=== PATIENT | male | born 1980 ===

== ENCOUNTER 2022-09-17 07:49 | Observation (INO) | payer OTHER, SELFPAY ==
[2022-09-17] VITALS (29 sets, daily range): BP systolic 102–128; BP diastolic 55–92; PULSE 74–87; RESP 12–18; TEMP 36.4–37.7; O2SAT 94–100; BMI 25.2
--- NOTE | ~2022-09-17 | CT_ITS ---
EXAMINATION: CT abdomen pelvis w con DATE: 09/17/2022 09:17 INDICATION: Right lower abdominal pain, emesis TECHNIQUE: Computed tomography (CT) of the abdomen and pelvis was performed with 100 CC Omnipaque 350 intravenous contrast. Automated exposure control and iterative reconstruction technique were employe d. Exam dose: 246.34 mGy-cm total exam DLP. COMPARISON: None. FINDINGS: The lung bases are clear. Normal heart size. No pericardial or pleural effusion. The liver, gallbladder, spleen, pancreas, bile ducts, pancreatic duct, and adrenal glands and kidneys are unremarkable. Normal caliber of the abdominal aorta. No intraperitoneal or retroperitoneal or pelvic mass lesion or adenopathy or ascites. There is appendiceal dilatation, measuring up to 12 mm diameter, with periappendiceal fat stranding, consistent with acute appendicitis. No abscess is identified. No bowel obstruction or intraperitoneal free air is detected. Included skeletal structures are unremarkable. IMPRESSION: Acute appendicitis Dr. Singh telephoned the report on 09/17/[id number] Krishnamurthy Reviewed, dictated and finalized at [facility]. Reviewed, dictated and finalized at [facility].
[2022-09-17] MEDS: ONDANSETRON INJ 4 MG/2 ML VIAL IV PUSH ×3 (08:26→16:18)
[2022-09-17] MEDS: HYDROmorphone HCL INJ (*CRX) 1 MG/ML SYR 0.5 MG IV PUSH ×2 (08:26→09:42)
[2022-09-17] MEDS: SODIUM CHLORIDE 0.9% IV 1,000 ML 999 ML IV CONT ×2 (08:26→09:42)
[2022-09-17 08:32] LABS: Basophils Percent Auto 0.2 % (0.2-1.2); Eosinophils Percent Auto 0.1 % (0-4.4); Hematocrit 40.2 % (42.0-52.0); Hemoglobin 13.8 g/dL (14.0-18.0); Immature Granulocyte Absolute 0.06 K/mm3 (0.00-0.031); Immature Granulocyte Percent A 0.4 % (0-0.5); Lymphocytes Absolute Auto 0.77 K/mm3 (0.9-3.2); Lymphocytes Percent Auto 4.6 % (18.3-44.2); Mean Corpuscular HGB Conc 34.3 g/dl (32-36); Mean Corpuscular Hemoglobin 29.4 pg (26-34); Mean Corpuscular Volume 85.5 fl (80-100); Mean Platelet Volume 10.3 fl (7.4-10.4); Monocytes Absolute Auto 0.5 K/mm3 (0.1-0.6); Neutrophils Absolute Auto 15.5 K/mm3 (1.3-6.7); Neutrophils Percent Auto 91.7 % (45.5-73.1); Platelet Count Result 236 k/mm3 (150-375); Red Cell Distribution Width 12.8 % (11.5-14.5); White Blood Count 16.9 K/mm3 (4.5-10.0)
[2022-09-17 08:54] LABS: Alanine Aminotransferase 19 U/L (6-50); Albumin Level 4.5 g/dL (3.5-5.1); Alkaline Phosphatase 88 U/L (38-126); Anion Gap 6 mmol/L (8-16); Aspartate Amino Transferase 23 U/L (17-59); Bilirubin,Total 0.8 mg/dL (0.2-1.3); Blood Urea Nitrogen 13 mg/dL (9-20); Calcium 9.3 mg/dL (8.4-10.2); Carbon Dioxide 25 mmol/L (22-30); Chloride 106 mmol/L (98-107); Estimated CRCL calculation 85 ml/min; Estimated Glomerular Filt Rate > 60; Glucose 103 mg/dL (65-110); Lipase 54 U/L (23-300); Potassium 4.1 mmol/L (3.4-5.0); Sodium 137 mmol/L (137-145)
--- NOTE | 2022-09-17 09:38 | ED.ABDPAIN ---
HPI - Abdominal Pain General Chief Complaint: Abdominal Pain Stated Complaint: abd pain Time Seen by Provider: 09/17/22 07:52 Source: patient and RN notes reviewed Mode of arrival: ambulatory Limitations: no limitations History of Present Illness HPI narrative: This is a 42 year old male who presents for evaluation of right lower abdominal pain . He reports last night he developed pain located right lower abdomen. His pain is nonradiating. It is associated with nausea and vomiting. He has been unable to take any thing for pain. He rates his 10/10 and he describes pain as sharp. Related Data Home Medications Medication Instructions Recorded Confirmed dextroamphetamine-amphetamine ER 25 mg PO QAM PRN when symptomatic 09/17/22 09/17/22 25 mg 24hr capsule,extend release (Adderall XR) sildenafil (pulm.hypertension) 20 100 mg PO DAILY PRN Erectile 09/17/22 09/17/22 mg tablet Dysfunction Allergies Allergy/AdvReac Type Severity Reaction Status Date / Time No Known Allergies Allergy Verified 09/17/22 18:12 Review of Systems Constitutional: Constitutional: Denies weakness Cardiovascular: Cardiovascular: Denies syncope, Denies rapid heart rate, Denies irregular heart rhythm, Denies leg edema and Denies dyspnea Respiratory: Respiratory: Denies chest congestion, Denies hemoptysis, Denies excessive phlegm production and Denies dyspnea Gastrointestinal: Gastrointestinal: Reports abdominal pain, Denies hematochezia, Denies diarrhea, Reports nausea and Reports vomiting Genitourinary: Genitourinary: Denies hematuria, Denies dysuria, Denies penile discharge and Denies testicular pain Musculoskeletal: Musculoskeletal: Denies joint swelling, Denies loss of height and Denies muscle weakness Neurologic: Denies syncope, Denies focal weakness and Denies weakness PMFSH Past Medical History Medical History ADHD (attention deficit hyperactivity disorder), inattentive type BMI 23.0-23.9, adult Chronic pain of left knee Chronic right shoulder pain Encounter for prostate cancer screening Encounter for wellness examination in adult Male erectile dysfunction, unspecified Surgical History Surgical History No pertinent past surgical history Social History Social History Years smoked: 2 Smoking status: Current every day smoker Tobacco type: e-cigarettes/vaping Additional smoking assessment comments: vapes nicotine-containing substance frequently throughout the day Alcohol intake: never Substance use: never Substance use type: does not use Lack of Transportation: No Lack of Food: Never True Current Housing: I Have Housing Concerned About Future Housing: No Difficulty Paying Gas/Electric Bills: No Difficulty Paying for Meds: No Currently Unemployed: No Education: Trade/Vocational Certificate Difficulty w/ Childcare or Family Care: No Spiritual care concerns: No Exam Const: General: alert Orientation/consciousness: patient oriented x3 Other: mild distress due to pain HENMT: Head: normal to inspection Throat: posterior oropharynx normal Eyes: EOM: EOMs intact bilaterally Chest: Chest palpation & inspection: normal inspection of the chest Resp: Effort & Inspection: normal respiratory effort Auscultation: clear to auscultation bilaterally Cardio: Rate: regular rate Rhythm: regular rhythm Heart sounds: no murmurs GI: GI Palp: Yes Soft to palpation, Yes Tenderness to palpation present (GI) (Diffuse), Yes Guarding due to palpation present (GI) and No Rigid due to palpation Auscultation: Hypoactive bowel sounds present Back/Spine/Pelvis: Back: no CVA tenderness Skin: General skin exam: normal color Rashes: no rashes Wounds: no wounds Neuro: General: patient oriented x3, moves all extremities and CN's II-XI i
[2022-09-17 09:52] LABS: Appearance Urine Clear (Clear); Bilirubin Urine Negative (Negative); Blood Urine Negative (Negative); Color Urine Yellow (Yellow); Glucose Urine UA Negative (Negative); Ketones Urine Negative (Negative); Leukocyte Esterase Ur Negative LEU/UL (Negative); Nitrate Urine Negative (Negative); Protein Urine Negative (Negative); Specific Grav Ur 1.043 (1.001-1.035); Urobilinogen Urine 0.2 mg/dL (<2.0); pH Urine 8.5 (5.0-9.0)
[2022-09-17 09:53] LABS: Add Urine Microscopic? NO
[2022-09-17] MEDS: PIPERACILLN/TAZ 3.375GM/NS50ML 3.375 GM/50 ML BAG IVPB ×3 (10:04→23:37)
--- NOTE | 2022-09-17 11:06 | PM.IMHP ---
H&P: HPI History of Present Illness Date/Time: 09/17/22 11:06 Chief Complaint: Right lower quadrant abdominal pain Narrative: This is a 42-year-old man who presented to the ER for evaluation of right lower quadrant abdominal pain starting last night. He reports a sudden onset of pain around 7:00 p.m. yesterday evening. He was up from sleep most of the night due to the abdominal pain progressively worsening. He developed nausea and had multiple episodes of vomiting. His pain progressively worsened into the morning and he presented to the ER for evaluation[place] [address] with a left shift. CT scan of the abdomen and pelvis showed acute appendicitis. No evidence of perforation or abscess. Our service was consulted by the ED physician for evaluation of acute appendicitis. The patient is now seen in the ER. He denies ever having this pain in the past. The pain medication has helped his pain some, but he continues to have right lower quadrant abdominal pain. His pain is aggravated by any movement and palpation. No fever or chills. Denies any previous surgeries. Review of Systems Review of Systems: All systems reviewed & are unremarkable except as noted in HPI and below Constitutional: Constitutional: Reports no additional constitutional complaints, Denies chills, Denies fatigue, Denies fever(s) and Denies poor appetite Eyes: Eyes: Reports no additional eye complaints ENT: Reports system reviewed and no additional complaints, except as documented and Denies dizziness Cardiovascular: Cardiovascular: Reports no additional cardiovascular complaints, Denies chest pain and Denies leg edema Respiratory: Respiratory: Reports no additional respiratory complaints, Denies cough and Denies dyspnea Gastrointestinal: Gastrointestinal: Reports as per HPI, Reports no additional gastrointestinal complaints, Reports abdominal pain, Denies change in bowel habits, Denies change in stool character, Denies constipation, Denies diarrhea, Reports nausea and Reports vomiting Genitourinary: Genitourinary: Reports no additional male genitourinary complaints and Denies dysuria Musculoskeletal: Musculoskeletal: Reports no additional musculoskeletal complaints, Denies abnormal gait and Denies joint swelling Integumentary/Breasts: Skin/Breast: Reports system reviewed and no additional complaints, except as docu Neurologic: Reports system reviewed and no additional complaints, except as documented, Denies headache(s), Denies focal weakness, Denies numbness and Denies tingling PMFSH Past Medical History Medical History ADHD (attention deficit hyperactivity disorder), inattentive type BMI 23.0-23.9, adult Chronic pain of left knee Chronic right shoulder pain Encounter for prostate cancer screening Encounter for wellness examination in adult Male erectile dysfunction, unspecified Surgical History Surgical History No pertinent past surgical history Social History Social History Smoking status: Current every day smoker Tobacco type: e-cigarettes/vaping Additional smoking assessment comments: vapes nicotine-containing substance frequently throughout the day Alcohol intake: never Substance use: never Substance use type: does not use Meds Home Medications and Allergies Home Medications Medication Instructions Recorded Confirmed Type sildenafil (pulm.hypertension) 20 See Rx Instructions PO ONCE #90 04/09/22 04/09/22 Rx mg tablet tabs dextroamphetamine-amphetamine ER 25 mg PO QAM #30 caps 09/01/22 Rx 25 mg 24hr capsule,extend release (Adderall XR) Allergies Allergy/AdvReac Type Severity Reaction Status Date / Time No Known Allergies Allergy Verified 09/17/22 08:01 Vital Signs Vital Signs - 24 hr 09/17/22 07:58 03
--- NOTE | 2022-09-17 12:24 | ADMGEN ---
This patient, Charlie William, was admitted to [facility] Surg Room 325-01. Patient/family oriented to hospital policies and general routines including ID bracelet, bed and alarms, visiting hours, pain management, procedures, bathroom and other care routines, personal items, smoking policy, room service/diet, and visiting hours. Information on how to activate the Rapid Response Team has been discussed. Patient/Family are encouraged to report perceived risks to care and to ask questions if they do not understand what they are told or what they should do.
[2022-09-17] MEDS: HYDROmorphone HCL INJ (*CRX) 1 MG/ML SYR IV PUSH ×2 (12:39→16:18)
[2022-09-17] MEDS: SODIUM CHLORIDE 0.9% IV 1,000 ML 125 ML IV CONT ×2 (12:44→23:37)
--- NOTE | 2022-09-17 14:10 | WPDHPUPDATE1 ---
History and Physical Update Update Date/Time: 09/17/22 14:10 History and Physical has been reviewed, including an updated exam of the patient. There are NO changes in the patient's condition. Risks, benefits, and alternatives have been discussed and questions answered. Patient agrees to proceed with procedure.
[2022-09-17] MEDS: LACTATED RINGERS 1,000 ML 30 ML IV CONT (17:20)
--- NOTE | 2022-09-17 17:20 | WPDANESEPPF ---
Anes - Initial Pre Proc Eval Procedure: Operation Date: 09/17/22 18:15 Proposed Procedures p Laparoscopic Appendectomy - Luis Stuart MD Date/Time: 09/17/22 17:20 Surgeon: Luis Stuart MD Pre Op Diagnosis: acute appendicitis Patient Data Age: 42 Gender: M Height: 1.68 m Weight: 71 kg Last Vital Signs Temp 36.4 C L 09/17/22 12:26 Pulse 84 09/17/22 12:26 Resp 16 09/17/22 12:26 BP 118/78 09/17/22 12:26 Pulse Ox 100 09/17/22 12:26 O2 Del Method Room Air 09/17/22 07:58 Allergies Allergy/AdvReac Type Severity Reaction Status Date / Time No Known Allergies Allergy Verified 09/17/22 08:01 Home Medications Medication Instructions Recorded Confirmed Type dextroamphetamine-amphetamine ER 25 mg PO QAM PRN when symptomatic 09/17/22 09/17/22 History 25 mg 24hr capsule,extend release (Adderall XR) sildenafil (pulm.hypertension) 20 100 mg PO DAILY PRN Erectile 09/17/22 09/17/22 History mg tablet Dysfunction Laboratory Tests 09/17/22 09/17/22 09/17/22 08:27 08:27 09:44 WBC 16.9 K/mm3 H K/mm3 (4.5-10.0) RBC 4.70 M/mm3 M/mm3 (4.6-6.20) Hgb 13.8 g/dL L g/dL (14.0-18.0) Hct 40.2 % L % (42.0-52.0) MCV 85.5 fl fl (80-100) MCH 29.4 pg pg (26-34) MCHC 34.3 g/dl g/dl (32-36) RDW 12.8 % % (11.5-14.5) Plt Count 236 k/mm3 k/mm3 (150-375) MPV 10.3 fl fl (7.4-10.4) Immature Gran % (Auto) 0.4 % % (0-0.5) Neut % (Auto) 91.7 % H % (45.5-73.1) Lymph % (Auto) 4.6 % L % (18.3-44.2) [place] % (Auto) 3.0 % % (2.6-8.5) Eos % (Auto) 0.1 % % (0-4.4) Baso % (Auto) 0.2 % % (0.2-1.2) Lymph # (Auto) 0.77 K/mm3 L K/mm3 (0.9-3.2) [place] # (Auto) 0.5 K/mm3 K/mm3 (0.1-0.6) Eos # (Auto) 0.0 K/mm3 K/mm3 (0-0.3) Baso # (Auto) 0.0 K/mm3 K/mm3 (0.0-0.1) Abs Immat Gran (auto) 0.06 K/mm3 H K/mm3 (0.00-0.031) Absolute Neuts (auto) 15.5 K/mm3 H K/mm3 (1.3-6.7) Absolute Nucleated RBC 0.0 K/mm3 K/mm3 (0.0-0.012) Nucleated RBC % 0.0 % % (0.0-0.2) Sodium 137 mmol/L mmol/L (137-145) Potassium 4.1 mmol/L mmol/L (3.4-5.0) Chloride 106 mmol/L mmol/L (98-107) Carbon Dioxide 25 mmol/L mmol/L (22-30) Anion Gap 6 mmol/L L mmol/L (8-16) BUN 13 mg/dL mg/dL (9-20) Creatinine 0.90 mg/dL mg/dL (0.7-1.3) Estim Creat Clear Calc 85 ml/min ml/min Estimated GFR > 60 (59 - ) Glucose 103 mg/dL mg/dL (65-110) Calcium 9.3 mg/dL mg/dL (8.4-10.2) Total Bilirubin 0.8 mg/dL mg/dL (0.2-1.3) AST 23 U/L U/L (17-59) ALT 19 U/L U/L (6-50) Alkaline Phosphatase 88 U/L U/L (38-126) Total Protein 7.0 g/dL g/dL (6.3-8.2) Albumin 4.5 g/dL g/dL (3.5-5.1) Lipase 54 U/L U/L (23-300) Urine Color Yellow (Yellow) Urine Appearance Clear (Clear) Urine pH 8.5 (5.0-9.0) Ur Specific [place] 1.043 H (1.001-1.035) Urine Protein Negative mg/dL mg/dL (Negative) Urine Glucose (UA) Negative mg/dL mg/dL (Negative) Urine Ketones Negative mg/dL mg/dL (Negative) Ur Blood (Man) Negative (Negative) Urine Nitrate Negative (Negative) Urine Bilirubin Negative (Negative) Urine Urobilinogen 0.2 mg/dL mg/dL (<2.0) Leukocyte Esterase Rfl Negative MARIAM/UL MARIAM/UL (Negative) Patient hx anesthesia problems: none Family hx anesthesia problems: none Results Review: All pre-operative results and documents have been reviewed as part of the pre-operative evaluation. [facility] Past Medical History Medical History (Reviewed 09/17/22 @ 17:20 by Janeen
[2022-09-17] MEDS: KETOROLAC 30 MG/ML VIAL (*BKC) IV PUSH (19:41)
[2022-09-17] MEDS: LIDO 1%/EPINEPHRINE 1:100,000 50 ML VIAL 30 ML INFILTRATE (19:53)
[2022-09-17] MEDS: BUPivacaine HCL 0.5% PF 30 ML VIAL INFILTRATE (19:53)
--- NOTE | 2022-09-17 20:07 | W.PM.PROC2 ---
Procedure Note - Detailed Date of Procedure 09/17/22 Pre-op Diagnosis acute appendicitis Post-op Diagnosis Same Procedure Performed Laparoscopic appendectomy. Surgeon Luis Stuart MD Technology Education Instructor NAM Sanchez Anesthesia General Indications Patient is a 42-year-old gentleman who presented to the emergency with a 12hour history of right lower quadrant abdominal pain. It was associated nausea and vomiting but no diarrhea. Workup in the emergency room showed an elevated white blood count [address] scan abdomen pelvis showed a dilated and inflamed appendix without evidence of perforation or periappendiceal abscess. Findings Acutely inflamed appendix with viable base and no periappendiceal abscess. Description of Procedure After informed consent was obtained the patient was brought to the operating room was placed in supine position and then general endotracheal anesthesia was administered. A Viramontes catheter was placed decompress the bladder and then the abdomen was then prepped and draped in usual sterile fashion. A time-out was then performed correctly identifying the patient as well as procedure to be performed. He was already on scheduled IV antibiotics. I then gained access into the abdomen by placing a 5mm Optiview port in the left upper quadrant under direct optical insertion. Once inside the abdomen insufflated to adequate pneumoperitoneum of 15mmHg of CO2. Then placed the patient in the Trendelenburg position and rotated to the patient's left side I then placed a suprapubic 5mm trocar port as well as a 12mm periumbilical trocar port and another 5mm right lower quadrant trocar port. The appendix is visualized it was in the right lower quadrant of the abdomen lateral to the cecum. It was inflamed throughout his distal 3/4 but the base was viable and not inflamed. We laparoscopic grasper held the appendix up and then made a defect through the mesentery near the base of the appendix with a Brandi dissected. A blue load to the 45mm Endo-OLIVER stapler was then used to divide the appendix flush with the cecum. Multiple vascular reload to the Endo-OLIVER stapler was then used to divide the mesoappendix. The appendix was then placed into an Endo-Catch bag and brought out through the periumbilical trocar port site. It was passed off table sent to pathology for examination. I then irrigated out the right lower quadrant the abdomen and the pelvis with copious amounts of sterile saline solution. [id number] of this of irrigation was used. Hemostasis on the staple lines were good. I then removed all the trocar ports under direct visualization all port sites appeared to be hemostatic. The allowed the abdomen decompressed. I then closed the 12mm periumbilical trocar port site utilizing a 0 Vicryl suture placed in a figure-eight fashion. The port sites were then all closed at skin level utilizing a running subcuticular 4-0 Monocryl suture. The incisions were then cleaned and skin glue was applied to the incisions. The patient tolerated the procedure well no complications. All sponges, needles, and instrument counts were correct at the end procedure. EBL was _20__cc. The patient was awakened and taken to recovery in stable and satisfactory condition. A Viramontes catheter was removed before leaving the operating room. Implants None Estimated Blood Loss 20 Drains No Packing No Pathology Yes (Appendix to pathology) Complications No immediate complications Condition Stable Disposition PACU [facility] Billing Surgery - Charge Forward: Surgery Billing
[2022-09-18] MEDS: PIPERACILLN/TAZ 3.375GM/NS50ML 3.375 GM/50 ML BAG IVPB (05:06)
[2022-09-18 06:00] VITALS: BP 130/71; PULSE 81; RESP 16; TEMP 36.9; O2SAT 98
[2022-09-18 07:38] LABS: Glucose Point of Care 92 mg/dl (65-105)
[2022-09-18] MEDS: oxyCODONE HCL (*CRX) 5 MG TAB IR PO (08:30)
--- NOTE | 2022-09-18 09:05 | WPDANESPN ---
Anes - Prog Note Post-Op Date/Time: 09/18/22 09:05 Cardiovascular status: normal Respiratory status: normal Airway patency: baseline Mental status: baseline Post-Op hydration status: normal Vital Signs: Last Vital Signs Temp 98.4 F 09/18/22 06:00 Pulse 81 09/18/22 06:00 Resp 16 09/18/22 06:00 BP 130/71 09/18/22 06:00 Pulse Ox 98 09/18/22 06:00 O2 Del Method Room Air 09/17/22 21:27 O2 Flow Rate 8 09/17/22 20:42 Pain Score (VAS): 0/10 I/O: Intake & Output 09/17/22 09/18/22 09/18/22 23:59 07:59 15:59 Intake Total 1350 50 Output Total 300 Balance 1350 -250 Laboratory Tests 09/17/22 08:27 09/17/22 08:27 09/17/22 09/18/22 09:44 07:34 POC Capillary Glucose 92 Urine Color Yellow Urine Appearance Clear Urine pH 8.5 Ur Specific [place] 1.043 H Urine Protein Negative Urine Glucose (UA) Negative Urine Ketones Negative Ur Blood (Man) Negative Urine Nitrate Negative Urine Bilirubin Negative Urine Urobilinogen 0.2 Leukocyte Esterase Rfl Negative Post-procedural complaints: none Patient Feedback: Patient satisfied with anesthetic care.
[2022-09-18 11:24] LABS: Glucose Point of Care 91 mg/dl (65-105)
--- NOTE | 2022-09-18 13:07 | PM.DS ---
DS: Admitting Diagnosis Discharge Date 09/18/22 Admitting Diagnosis Acute uncomplicated appendicitis Vapes nicotine-containing substance DS: Discharge Diagnosis Discharge Diagnosis (1) Acute appendicitis with localized peritonitis, without perforation or abscess: Code(s): K35.30 - Acute appendicitis with localized peritonitis, without perforation or gangrene Status: Acute Assessment and Plan: 09/17/22 - Laparoscopic appendectomy - by Dr. Lemus (2) Vapes nicotine containing substance: Code(s): Z72.0 - Tobacco use Status: Acute DS: Summary Hospital Course Reason for hospitalization: This is a 42 year old man who presented to the ER yesterday for evaluation of RLQ abdominal pain for about 12 hours. Workup in the ER showed a WBC count of 16,[address] evidence of acute appendicitis with no evidence of perforation or periappendiceal abscess. He was admitted in the setting for treatment and surgical evaluation. Hospital Course: He was started on IV Zosyn for broad-spectrum antibiotics. Decision was made for surgery. He underwent a laparoscopic appendectomy by Dr. Rossi on 09/17/2022. The appendix was not perforated. No immediate complications. He was kept in the hospital overnight for observation as his surgery was later in the evening yesterday. He has slowly been advanced to a regular diet today and is tolerating this well. Pain has been well controlled without requiring any narcotics today. He is tolerating activity. Voiding without any difficulties. He is stable for discharge today. Will have him follow-up with Dr. Rossi in the office in 2 weeks. Time spent discussing smoking cessation with patient: 3 to 10 minutes Status at Discharge Functional status at discharge: independent ambulation Overall status at discharge: patient is progressing back to baseline Time Spent with Patient Time attestation: Total time spent providing and/or coordinating discharge services: Time spent: Less than 30 minutes Exam Const: General: comfortable, no acute distress and awake Orientation/consciousness: patient oriented x3 GI: Inspection: non-distended and incision (incisions dry and intact) GI Palp: Yes Soft to palpation and Yes Tenderness to palpation present (GI) (incisional) Auscultation: normal bowel sounds Neuro: General: moves all extremities and no focal motor deficits Extrem: General: no calf tenderness and no edema Psych: Mental Status: mental status grossly normal Insight: Good insight present (Psych) DS: Data Data Completed and Pending Pending studies at discharge: Pending at discharge 09/17/22 19:43 Surgical [PTH] Routine Labs on day of discharge: Labs from last 24 hours 09/18/22 09/18/22 11:22 07:34 POC Capillary Glucose 91 92 Procedures/Treatments: Procedures Operation Date: 09/17/22 18:15 Actual Procedure Side Surgeon p Laparoscopic Appendectomy Not Applicable Luis Rossi MD Imaging Radiologist's impression: ITS Impressions Abdomen/Pelvis CT 09/17/22 09:20 IMPRESSION: Acute appendicitis Dr. iSngh telephoned the report on 09/17/[id number] Krishnamurthy Discharge Plan Discharge Attending physician on discharge: Luis Rossi Discharging Clinician: Miguelina Cooper Anticipated Discharge Date/Time: 09/18/22 14:00 Patient Disposition: Home, Self-Care Activity: may shower and other - see discharge instructions Diet: regular Wound Care Instructions: incision open to air Discharge Instructions: DISCHARGE INSTRUCTIONS FOR DR. ROSSI 1. May shower in 24 hours, no soaking in bath x 2weeks. 2. Call office for: Wound increasingly painful or bleeding Vomiting Fever of greater than 101 degrees 3. If no bowel movement for three days, take 1 oz. (30 ml) Milk of Magnesia or MiraLax 17g 1 to 2 times daily. 4. No heavy lifting > 10-15 pounds x 2 weeks for laparoscopic appendectomy. 5. No driving for
== END 2022-09-18 13:56 | disposition home or self-care (01) ==
LOC: ANHED 11:16 → ANH3MEDSUR 11:26
PROVIDERS: Admitting Provider Surgery; Emergency Provider General Practice; PCP Family Medicine; Visit Provider Surgery
PROC: 0DTJ4ZZ Resection of Appendix, Percutaneous Endoscopic Approach (ICD-10-PCS; CPT 44970; principal; 2022-09-17 18:15)
DX: K35.30 Acute appendicitis with localized peritonitis, without perforation or gangrene (principal); F90.9 Attention-deficit hyperactivity disorder, unspecified type; G89.29 Other chronic pain; M25.562 Pain in left knee; M25.511 Pain in right shoulder; D72.829 Elevated white blood cell count, unspecified; F17.210 Nicotine dependence, cigarettes, uncomplicated; Z79.899 Other long term (current) drug therapy
CPT/HCPCS: 44970; 36415; 74177; 80053; 81003; 82948; 83690; 85025; 88304; 96361; 96365; 96375; 96376; 99285; A9270; G0378; J0131; J0330; J1170; J1885; J2250; J2270; J2405; J2543; J7030; J7120; Q9967